=== PATIENT | male | born 1985 | race Caucasian/White ===

== ENCOUNTER 2019-07-30 09:55 | Emergency (ER) | payer OTHER ==
[2019-07-30 11:23] VITALS: BP 137/70
--- NOTE | 2019-07-30 12:09 | UC ---
Hand/Wrist HPI - HPI Summary HPI Summary: 34-year-old male comes in with chief complaint of right wrist pain. Pain started when 8 days ago on July 22, 2019 patient was at work and doing heavy lifting which included repetitive twisting motion of his right wrist. Pain is in the distal right forearm into the right wrist primarily over the radial aspect. Patient does feel some crackling when he moves the area and it is swollen. Is tender to palpation. Icing it and using naproxen helps some. No complaint of any loss of sensation or strength. - History Of Current Complaint Chief Complaint: UCUpperExtremity Stated Complaint: RT WRIST INJURY Time Seen by Provider: 07/30/19 11:55 Pain Intensity: 2 - Allergies/Home Medications Allergies/Adverse Reactions: Allergies Allergy/AdvReac Type Severity Reaction Status Date / Time No Known Allergies Allergy Verified 07/30/19 11:16 Home Medications: Home Medications Albuterol HFA INHALER* [Ventolin HFA Inhaler*] 1 - 2 puff INH Q4H PRN 07/30/19 [ History Confirmed 07/30/19] Cholecalciferol TAB* [Vitamin D TAB*] 1,000 unit PO DAILY 07/30/19 [History Confirmed 07/30/19] Fluticasone HFA 110 mcg(NF) [Flovent HFA 110 mcg(NF)] 1 puff INH BID PRN [History Confirmed 07/30/19] PMH/Surg Hx/FS Hx/Imm Hx Previously Healthy: Yes Respiratory History: Asthma - Surgical History Surgical History: None - Family History Known Family History: Negative: Cardiac Disease, Renal Disease, Respiratory Disease, Seizure Disorder - Social History Alcohol Use: Weekly Substance Use Type: None Smoking Status (MU): Never Smoked Tobacco Review of Systems All Other Systems Reviewed And Are Negative: Yes Constitutional: Positive: Negative Skin: Positive: Negative Eyes: Positive: Negative ENT: Positive: Negative Respiratory: Positive: Negative Cardiovascular: Positive: Negative Gastrointestinal: Positive: Negative Motor: Positive: Negative Neurovascular: Positive: Negative Musculoskeletal: Positive: Other: - SEE HPI Neurological: Positive: Negative Psychological: Positive: Negative Is Patient Immunocompromised?: No Physical Exam Triage Information Reviewed: Yes Appearance: Well-Appearing, No Pain Distress, Well-Nourished Vital Signs: Initial Vital Signs Temp 98.1 F 11/19/19 11:19 Pulse 64 07/30/19 11:19 Resp 16 07/30/19 11:19 BP 137/70 07/30/19 11:19 Pulse Ox 98 07/30/19 11:19 Vital Signs Reviewed: Yes Eye Exam: Normal Eyes: Positive: Conjunctiva Clear Neck: Positive: Supple Respiratory: Positive: No respiratory distress Musculoskeletal: Positive: Other: - Over the distal right radius there is swelling is tender to palpation. There are crackling noises as the patient goes to the range of motion of his wrist. Strength is normal normal sensation normal radial pulse. Range of motion is full although there is increased pain especially with wrist abduction and abduction. Neurological: Positive: Alert Psychological: Positive: Age Appropriate Behavior Skin Exam: Normal Hand/Wrist Course/Dx - Course Course Of Treatment: Findings are consistent with wrist tendinitis. Patient has been taking ibuprofen already and icing it. Will continue with that but also add prednisone to be used if needed and also a cock-up splint. Plan is to follow up either with occupational medicine orthopedics or sports medicine if not completely improved. - Differential Dx/Diagnosis Provider Diagnosis: Right wrist tendonitis Discharge ED - Sign-Out/Discharge Documenting (check all that apply): Patient Departure All imaging exams completed and their final reports reviewed: No Studies - Discharge Plan Condition: Stable Disposition: HOME Prescriptions: predniSONE TAB* [Deltasone 20 MG TAB*] 40 mg PO DAILY #10 tab Patient Education Materials: Tendinitis (ED) Referrals: Kiana Crane [Primary Care Provider] - [facility] [Provider Group] Boubacar Herron MD [Medical Doctor] - Evan Gann MD [Medical Doctor] - Additional Instructions: FOLLOW UP WITH OCCUPATIONAL MEDICINE, DR HERRON, OR ORTHOPEDICS, DR GANN, OR SPORTS MEDICINE IF NOT COMPLETELY IMPROVED. GET REEVALUATED SOONER IF NOT IMPROVING OR WORSE OR ANY QUESTIONS OR CONCERNS. - Billing Disposition and Condition Condition: STABLE Disposition: Home
== END 2019-07-30 12:29 | disposition home or self-care (01) ==
LOC: UCCORT 09:55
DX: M77.9 Enthesopathy, unspecified (principal); J45.909 Unspecified asthma, uncomplicated
CPT/HCPCS: 99213; G0463